=== PATIENT | female | born 1990 | race Caucasian/White ===

== ENCOUNTER 2017-01-25 00:41 | Inpatient (IN) | payer OTHER ==
--- NOTE | ~2017-01-25 | CT16 ---
[facility] A Service of [facility] RADIOLOGY TEXT RESULTS PATIENT: BONI GONZALEZ [facility] 572-01 : [birth year] UNIT #: [id number] AGE: [address]: Peyton Molina MD SEX: F ORDER DR: [id number] [facility] [address] [place], [place] [address] [id number] I MR#: [id number] Acc #: [id number] NAME: BONI GONZALEZ : 1990 SEX: F STUDY DATE/TIME: 01/25/2017 4:40 [facility]IT[facility] ROOM: [facility] STUDY DESCRIPTION: CT Angio Chest for PE Attending Physician: Peyton Molina M.D. Ordering Physician: Polina Proctor A.P.R.N. Primary Care Physician: No Primary Care Physician MEDICAL IMAGING REPORT This report is preliminary unless electronic signature is present EXAM CTA chest. INDICATIONS Shortness of air and chest pain. Pain with inspiration. Recent surgery. TECHNIQUE CT angiography of the chest utilizing 100 mL Isovue-370 IV contrast. Coronal 3-D MIP reconstructions and standard sagittal reconstructions were obtained. This CT exam was performed with one or more of the following radiation dose reduction techniques: automatic exposure control, adjustment of mA and/or kV according to patient size, and iterative reconstruction. COMPARISON Chest radiograph, 01/25/2017. FINDINGS No pulmonary embolus. No thoracic aortic aneurysm or dissection. There is no pericardial effusion. There is a large loculated effusion on the left. This measures up to 12 cm in superior/inferior dimension. This occupies approximately one-half of the left hemithorax. There is some mild pleural enhancement suggesting this may be empyema. Several additional elliptoid pleural-based fluid collections are noted. These have thicker chaudhry measuring up to 4 x 2.2 cm. There is some osseous erosion associated with the anterior left first rib. There is irregularity of the posterior wall of the cortex. This is felt to represent to represent some chest wall invasion. There is asymmetry of the intercostal muscles indicating extension through the chest wall. This particular area measures 4.4 x 4 cm. Given then patient's age, I assume this is infectious, however, this could potentially be malignant. [facility]. [facility] A Service of [facility] RADIOLOGY TEXT RESULTS PATIENT: BONI GONZALEZ [facility] 572-01 : [birth year] UNIT #: [id number] AGE: [address]: Peyton Molina MD SEX: F ORDER DR: There is mild centrilobular emphysema. Linear atelectasis or scarring is noted in the right lower lobe. IMPRESSION 1. Negative for pulmonary embolus. 2. Very large loculated pleural effusion in the left hemithorax occupies approximately one-half the volume of the left hemithorax. This probably represents an empyema. 3. Additional loculated fluid collections in the anterior left chest. One of these collections extends through the chest wall eroding portion of the left first rib. Given the patient's age, this is most likely infection, however, pleural metastatic disease and/or mass could have a similar appearance. 4. Emphysema. Dictated by... Dakotah Galarza M.D. THIS IS AN ELECTRONICALLY VERIFIED REPORT Dakotah Galarza M.D. at 01/26/2017 1:02 AM LEEANNA/deborah TD: 01/25/2017 17:55 JOB #: [id number] MEDICAL IMAGING REPORT Page 1 of 1 COPY
--- NOTE | ~2017-01-25 | CR72 ---
[facility] A Service of [facility] RADIOLOGY TEXT RESULTS PATIENT: BONI GONZALEZ LOCATION: [facility] : [birth year] UNIT #: [id number] AGE: [address]: Peyton Molina MD SEX: F ORDER DR: [id number] [facility] [address] [place], [place] [address] [id number] I MR#: [id number] Acc #: [id number] NAME: BONI GONZALEZ : 1990 SEX: F STUDY DATE/TIME: 01/29/2017 21:09 UNIT: [facility] ROOM: [facility] STUDY DESCRIPTION: CR Chest Single View Portable Attending Physician: Peyton Molina M.D. Ordering Physician: Lauro Faith M.D. Primary Care Physician: Primary Care Physician No MEDICAL IMAGING REPORT This report is preliminary unless electronic signature is present EXAM Frontal chest, 01/29/2017 INDICATIONS 27-year-old female with history of chest tube placement today. TECHNIQUE Frontal chest compared with 1133 hours. FINDINGS Right-sided central line unchanged. There are 2 left-sided chest tubes. Cardiac silhouette borderline in size and stable. Vascularity unremarkable. There is a small left-sided effusion. Opacities in the left lung are not significantly changed from the prior study. No distinct pneumothorax. IMPRESSION 1. Previously demonstrated left basilar pneumothorax no longer clearly identified. Small left effusion now present. No pneumothorax on the left. Two left-sided chest tubes are present. No other significant interval change from 1133 hours. Dictated by... Marco Anderson M.D. THIS IS AN ELECTRONICALLY VERIFIED REPORT Marco Anderson M.D. at 01/30/2017 2:36 PM JEN/julio TD: 01/29/2017 23:43 JOB #: [id number] [facility] A Service of [facility] RADIOLOGY TEXT RESULTS PATIENT: BONI GONZALEZ LOCATION: [facility] : [birth year] UNIT #: [id number] AGE: [address]: Peyton Molina MD SEX: F ORDER DR: MEDICAL IMAGING REPORT Page 1 of 1 COPY
--- NOTE | ~2017-01-25 | DS ---
Unit #: [id number] #: [id number] Patient: BONI GONZALEZ [id number] [address] [address] [id number] I MR#: [id number] NAME: BONI GONZALEZ ROOM: 550 Age: 27 Sex: F Admission Date: 01/25/2017 : 1990 Discharge Date: 02/01/2017 Attending Physician: Peyton Molina M.D. Primary Care Physician: No Primary Care Physician DISCHARGE SUMMARY NOTE: Please note the patient left AMA. She walked off the floor and did not return. HISTORY OF PRESENT ILLNESS/HOSPITAL COURSE The patient is a 27-year-old female originally admitted secondary to back/rib pain, as well as empyema, which was noted on initial CT chest while evaluated in the emergency room. Consultation was placed to Dr. Morrell, as well as Dr. Faith, through her hospital course. Ultimately the patient underwent chest tube placement and, later on, VATS procedure with associated decortication by Dr. Faith. Final empyema cultures did come back positive for MSSA. Dr. Ocampo of infectious disease service continued to follow the patient through her hospital course. Her blood cultures did not show any acute bacterial growth through the course that she was here. She did undergo two-D echocardiogram, which did not show any acute vegetations. Her urine tox on admission was positive for benzodiazepines, as well as opiates. On 02/01/2017 the patient had her chest tube removed, and initial plans were made for the patient to be placed on Keflex until February 21, 2017. However, the patient left the floor as soon as her chest tube was removed. She was overhead paged several times and ultimately was noted that the patient decided to leave AMA. Discharge medications are unknown. Overall long-term prognosis of this patient is very poor. Life expectancy is likely less than 6 months due to lack of insight into disease process, as well as ongoing IV drug abuse. FINAL DISCHARGE DIAGNOSES 1. Empyema, left chest wall, positive methicillin-sensitive Staphylococcus aureus, status post chest tube placement and video-assisted thoracoscopy procedure with associated decortication. 2. Ongoing intravenous drug abuse with poor or little insight into disease process. DISCHARGE MEDICATIONS Unknown. LONG-TERM PROGNOSIS Unit #: [id number] #: [id number] Patient: BONI GONZALEZ. Dictated by... Celsa Luz/raciel TD: 02/04/2017 10:13 JOB #: [id number] DISCHARGE SUMMARY Page 1 of 1 X Peyton Molina MD X DISCHARGE SUMMARY
--- NOTE | ~2017-01-25 | OR ---
Unit #: [id number] #: [id number] Patient: BONI GONZALEZ [id number] [address] [address] [id number] I MR#: [id number] NAME: BONI GONZALEZ ROOM: [facility] Date of Procedure: 01/29/2017 Admission Date: 01/25/2017 Surgeon: Lauro Faith M.D. : 1990 Attending Physician: Peyton Molina M.D. Primary Care Physician: Primary Care Physician No OPERATIVE REPORT PREOPERATIVE DIAGNOSIS Left empyema with loculated pleural collection in spite of a left chest tube in place. POSTOPERATIVE DIAGNOSIS Left empyema with loculated pleural collection in spite of a left chest tube in place. PROCEDURE PERFORMED Left video-assisted thoracoscopy with decortication. ANESTHESIA General. ESTIMATED BLOOD LOSS About 500 mL. DRAINS Two #28 chest tubes. COMPLICATIONS None. DESCRIPTION OF PROCEDURE The patient was taken to the operating room and placed on the operating room table in a supine position. After appropriate monitoring lines had been placed, general endotracheal anesthesia was then induced using a double-lumen endotracheal tube. Adequate positioning of this tube was ensured using the pediatric bronchoscope. A Woodward catheter was inserted. The patient was placed on the operating room table in a right lateral decubitus position. A rolled sheet was placed beneath the right axillary area. The patient was secured in place on the operating room table using a quesada bag as well as tape across the left hip. The left arm was supported anteriorly on an arm support. The old chest tube was removed. The left chest was prepped with ChloraPrep and draped in a sterile fashion. A small 1 to 1.5 cm skin incision was made in the mid axillary line at about the seventh intercostal space. The incision was carried down through the subcutaneous tissue and muscle and fascial layers using the Bovie. With the lung being deflated on the left, the pleural space was entered at this level using a Rubi clamp and a gloved finger then inserted. A trocar introducer was inserted and the thoracoscope then passed per this trocar introducer. There was a large amount of grayish Unit #: [id number] #: [id number] Patient: BONI GONZALEZ exudative and fibrinous material covering the diaphragm and chest wall in the lower chest as well as the left lower lobe and extending up on the left upper lobe. The left upper lobe was somewhat adherent to the chest wall and 2 counter incisions were made in the chest for passage of instruments. One of these was placed posteriorly in about the sixth intercostal space and the other placed anteriorly in about the fifth intercostal space. A ringed lung clamp was used to bluntly take down the left upper lobe. This dissection was carried out more at the apex and the anterior portion of the left upper lobe, there was a severe amount of adhesions present with necrotic material present. There was also a moderate amount of the grayish exudative material present along the anterior portion of the hilum. As much of the grayish fibrinous pleural collection was removed as was possible with a large cupped forceps. Also some of the material was suctioned free from the chest. A Paulino elevator was used to scrape some of this material from the diaphragm as well as the chest wall and then subsequently removed it using the large cupped forceps. Also the diaphragmatic surface of the left lower lobe was scraped with the Paulino elevator to remove exudative grayish material. It was also used on the lateral portion of the left lower lobe. The left upper lobe seemed to be fairly free of the fibrinous collection on the lung except at the anterior portion of the left upper lobe. At this portion, the tissue seemed to be slightly more necrotic. The remaining material in the pleural space was then removed using the large cupped forceps and the chest then irrigated on 2 to 3 occasions with warm normal saline solution to remove any small amount of particles. After adequate hemostasis had been ensured, two #28 chest tubes were inserted with one being placed high in the anterior in the chest and the other being placed in the posterior gutter. These were brought out through the lower incisions that had already been made in the chest. They were sutured in place to the skin using 2-0 silk suture. They were individually connected to a Pleur-evac. The small posterior incision was closed using 2-0 Vicryl for the muscle and fascial layer, 3-0 Vicryl for the subcutaneous tissue, and running 4-0 Vicryl subcuticular stitch for the skin. This incision was sterilely dressed. A cut 4x4 was placed around the chest tubes, and they were secured in place with tape. Also, a small piece of Vaseline gauze was placed over the old chest tube site and this was covered with 4x4s and held in place with tape. Estimated blood loss in the procedure was about 500 mL. Sponge and needle counts in the operation were correct. The patient tolerated the procedure well and left the operating room in satisfactory condition. Dictated by... Celsa Kelley/ann TD: 01/30/2017 00:37 JOB #: [id number] Unit #: [id number] #: [id number] Patient: BONI GONZALEZ OPERATIVE REPORT Page 1 of 1 X Lauro Faith MD X PROCEDURE OPERATIVE NOTE
--- NOTE | ~2017-01-25 | CO ---
Unit #: [id number] #: [id number] Patient: BONI GONZALEZ [id number] [address] [address] [id number] I MR#: [id number] NAME: BONI GONZALEZ ROOM: 572 Age: 26 Sex: F Admission Date: 01/25/2017 : 1990 Attending Physician: Peyton Molina M.D. Primary Care Physician: No Primary Care Physician Consultation Date: 01/26/2017 CONSULTATION REPORT REASON FOR CONSULTATION Antibiotic management in a patient with empyema. HISTORY OF PRESENT ILLNESS This is a 26-year-old female with a history of IV drug abuse, last ingested 3 to 4 weeks ago. The patient reports that was going to come to the hospital secondary to chest pain and shortness of breath; however, she was incarcerated for the last three weeks. The patient continued to have shortness of air and chest pain while she was in prison and when she was released she came directly to the hospital. While here she had a CT scan done that showed a loculated effusion concerning for empyema and she had a chest tube placed. Fluid was consistent with empyema and cultures are currently growing staph aureus. The patient also had a urinalysis done that was concerning for urinary tract infection. The patient reports that she frequently gets urinary tract infections. However, she has no specific symptoms at this time. The patient has been placed on tobramycin, vancomycin and Zosyn and infectious disease was asked to evaluate. The patient does have fever and leukocytosis as well during admission. PAST MEDICAL HISTORY IV drug abuse. Otherwise negative. PAST SURGICAL HISTORY Negative. SOCIAL HISTORY IV drug abuse. Tobacco abuse. Social alcohol. ALLERGIES Caffeine and Tylenol. CURRENT MEDICATIONS 1. Vancomycin. 2. Tobramycin. 3. Zosyn. For further medications please refer to the patient's MAR. REVIEW OF SYSTEMS The patient reports that her back pain has resolved. She does have some chest pain at the insertion site of her chest tube. She reports fever and occasional chills. No nausea, vomiting, diarrhea. No significant urinary tract infection signs or symptoms. The patient reports no abscess or inflammation at the site of injection. Unit #: [id number] #: [id number] Patient: BONI GONZALEZ PHYSICAL EXAMINATION GENERAL: This is a no apparent distress female sitting on the side of the bed comfortably. VITALS: Temperature 100.4, t-max 102.4, pulse 90, blood pressure 141/77, respiratory rate 17. HEENT: Pupils are equal. NECK: Supple. LUNGS: Clear to auscultation in the upper lobes. However, diminished in the lower lobes. Chest tube is in place in the left chest. HEART: S1 and S2 with regular rate. ABDOMEN: Positive bowel sounds. Soft and nontender. EXTREMITIES: No clubbing, cyanosis or edema. DIAGNOSTIC STUDIES IMAGING: CT scan of the chest, please see full report for complete details. It shows no evidence of PE. Large loculated pleural effusion and emphysema. LABORATORY: BUN less than 5, creatinine 0.7, sodium 136, potassium 2.8, chloride 98, CO2 30, bilirubin 0.7, AST 56, ALT 108, alkaline phosphatase 138, lactic acid 1.9. White blood cell count 17.6, which is improved from 21,000. Hemoglobin 10.3, hematocrit 31.5, platelets 644. Pleural fluid shows 219,843 WBCs with 97% neutrophils. Glucose was not done. Protein 5.9, LDH 14,301. Urinalysis shows WBCs 50-100, negative nitrites, positive RBCs. Blood cultures are currently pending. Urine culture shows gram negative rods, greater than 100,000 colonies, and pleural fluid shows staph aureus. ID is pending. ASSESSMENT This is a 26-year-old female who abuses IV drugs and recently incarcerated. The patient now presents with shortness of breath and chest pain, found to have large loculated effusion on her left lung. The patient is status post chest tube, consistent with empyema, growing staph aureus and concern is for MRSA. At this time, as the patient has use of recreational activities including IV drugs, there is also a concern for bacteremia and endocarditis. At this time would recommend to continue vancomycin and Zosyn, but hold tobramycin as the patient appears nontoxic. Will check a CBC and CMP in the morning. Will check HIV test as the patient is high risk. Will check a two-dimensional echocardiogram to evaluate for any vegetations and have the nursing staff call with any positive blood cultures. Will follow along the final ID of the staph aureus that is in the pleural fluid. Will continue to treat as questionable gram negative urinary tract infection. However, the patient does not have significant symptoms. Thank you for allowing us to participate in the care of this patient. Further recommendations to follow pending the patient's clinical course. Dictated by... Kinga Cedeño A.P.R.N. for Kiran Nichole M.D. SLS/gz TD: 01/26/2017 11:25 Unit #: [id number] #: [id number] Patient: BONI GONZALEZ JOB #: [id number] CONSULTATION REPORT Page 1 of 1 X X CONSULTATION REPORT
--- NOTE | ~2017-01-25 | CR72 ---
[facility] A Service of [facility] RADIOLOGY TEXT RESULTS PATIENT: BONI GONZALEZ LOCATION: [facility] 572-01 : [birth year] UNIT #: [id number] AGE: [address]: Peyton Molina MD SEX: F ORDER DR: [id number] [facility] [address] [place], [place] [address] [id number] I MR#: [id number] Acc #: [id number] NAME: BONI GONZALEZ : 1990 SEX: F STUDY DATE/TIME: 01/27/2017 5:20 UNIT: [facility] ROOM: [facility] STUDY DESCRIPTION: CR Chest Single View Portable Attending Physician: Peyton Molina M.D. Ordering Physician: Peyton Molina M.D. Primary Care Physician: No Primary Care Physician MEDICAL IMAGING REPORT This report is preliminary unless electronic signature is present EXAM Portable chest, 01/27. INDICATION Empyema. Shortness of air. Chest pain. History of drug use. FINDINGS AP portable chest compared to 01/26/2017. Right-side central venous catheter in the SVC. Heart size stable. Left chest tube in place. Loculated pleural based density on the left is stable. Consolidation in the left mid to lower lung is also stable. Right lung is clear except for some atelectasis in the medial base. No pneumothorax. Dictated by... Leandro Martin Jr., M.D. THIS IS AN ELECTRONICALLY VERIFIED REPORT Leandro Martin Jr., M.D. at 01/27/2017 3:48 PM AMADA/cash TD: 01/27/2017 14:05 JOB #: [id number] MEDICAL IMAGING REPORT Page 1 of 1 COPY
--- NOTE | ~2017-01-25 | EKG ---
PATIENT: BONI GONZALEZ UNIT #: [id number] Ventricular Rate: 127 BPM Atrial Rate: 127 BPM P-R Interval: 154 ms QRS Duration: 88 ms Q-T Interval: 310 ms QTC Calculation(Bezet): 450 ms P [place]: 27 degrees Calculated R [place]: 42 degrees Calculated T [place]: 7 degrees Diagnosis Line: Sinus tachycardia with occasional Premature Diagnosis Line: ventricular complexes Diagnosis Line: Septal infarct , age undetermined Diagnosis Line: T wave abnormality, consider inferior ischemia Diagnosis Line: Abnormal ECG Diagnosis Line: No previous ECGs available Diagnosis Line: Confirmed by LETY EUCEDA MD ([id number]) on Diagnosis Line: 01/27/2017 11:04:55 AM INTERPRETING MD: OK EISENBERG
--- NOTE | ~2017-01-25 | CR72 ---
[facility] A Service of [facility] RADIOLOGY TEXT RESULTS PATIENT: BONI GONZALEZ LOCATION: [facility] : [birth year] UNIT #: [id number] AGE: [address]: Peyton Molina MD SEX: F ORDER DR: [id number] [facility] [address] [place], [place] [address] [id number] I MR#: [id number] Acc #: [id number] NAME: BONI GONZALEZ : 1990 SEX: F STUDY DATE/TIME: 02/01/2017 5:47 UNIT: C5B ROOM: [facility] STUDY DESCRIPTION: CR Chest Single View Portable Attending Physician: Peyton Molina M.D. Ordering Physician: Peyton Molina M.D. Primary Care Physician: No Primary Care Physician MEDICAL IMAGING REPORT This report is preliminary unless electronic signature is present EXAM Portable chest HISTORY Chest pain, short of air for 8 days COMMENT Single frontal and portable view of the chest 5:47 at 02/01/17 reviewed. FINDINGS There is a left chest tube present. The second left chest tube has been removed since earlier film. There is a small to moderate left pleural effusion similar in size and there is airspace disease left mid to lower lung with some improvement. There is no pneumothorax. There is probably a mild cardiac silhouette enlargement partially obscured by the left lung pathology. The right lung is clear. The right IJ catheter is not changed. IMPRESSION 1. Interval removal of one of left chest tubes. No pneumothorax. 2. There is left pleural fluid and left lower lung airspace disease with some improvement overall in the airspace disease since prior. Dictated by... Vania Sal M.D. THIS IS AN ELECTRONICALLY VERIFIED REPORT Vania Sal M.D. at 02/02/2017 7:18 AM BROOKE/yocasta [facility] A Service of [facility] RADIOLOGY TEXT RESULTS PATIENT: BONI GONZALEZ LOCATION: [facility] : [birth year] UNIT #: [id number] AGE: [address]: Peyton Molina MD SEX: F ORDER DR: TD: 02/01/2017 17:24 JOB #: [id number] MEDICAL IMAGING REPORT Page 1 of 1 COPY
--- NOTE | ~2017-01-25 | CR71 ---
[facility] A Service of [facility] RADIOLOGY TEXT RESULTS PATIENT: BONI GONZALEZ LOCATION: [facility]- : [birth year] UNIT #: [id number] AGE: [address]: Peyton Molina MD SEX: F ORDER DR: [id number] [facility]. [place], [place] [address] [id number] I MR#: [id number] Acc #: [id number] NAME: BONI GONZALEZ : 1990 SEX: F STUDY DATE/TIME: UNIT: [facility] ROOM: [facility] STUDY DESCRIPTION: CR Chest Single View Attending Physician: Peyton Molina M.D. Ordering Physician: Lauro Faith M.D. Primary Care Physician: Primary Care Physician No MEDICAL IMAGING REPORT This report is preliminary unless electronic signature is present EXAM Chest portable 01/29/2017 1133 hours HISTORY History of shortness of air, chest pain and empyema on the left. Chest tube adjustment today. COMPARISON 01/27/2017 FINDINGS Single portable view demonstrates a right central venous catheter with tip in SVC. There are now 2 chest tubes present obliquely oriented with tips near the left apex. The previous tube with tip at the medial lung base not seen. There is interval evacuation of the loculated pleural fluid from the lower left chest with a small lateral basal pneumothorax present which could be on an ex vacuo basis. IMPRESSION There are now 2 left chest tubes present with tips obliquely oriented near the left apex. The left pleural fluid has been evacuated. There is a lateral basal pneumothorax only which could be due to ex vacuo factor with atelectasis at the left base. No apical pneumothorax is seen. Dictated by... Loretta Bar M.D. THIS IS AN ELECTRONICALLY VERIFIED REPORT Loretta Bar M.D. at 01/29/2017 4:57 PM SMM/ana TD: 01/29/2017 16:08 JOB #: [id number] [facility] A Service of [facility] RADIOLOGY TEXT RESULTS PATIENT: BONI GONZALEZ LOCATION: [facility] 572-01 : [birth year] UNIT #: [id number] AGE: [address]: Peyton Molina MD SEX: F ORDER DR: MEDICAL IMAGING REPORT Page 1 of 1 COPY
--- NOTE | ~2017-01-25 | CR72 ---
[facility] A Service of [facility] RADIOLOGY TEXT RESULTS PATIENT: BONI GONZALEZ LOCATION: [facility] 550-01 : [birth year] UNIT #: [id number] AGE: [address]: Peyton Molina MD SEX: F ORDER DR: [id number] [facility] [address] [place], [place] [address] [id number] I MR#: [id number] Acc #: [id number] NAME: BONI GONZALEZ : 1990 SEX: F STUDY DATE/TIME: 01/31/2017 6:05 UNIT: C5B ROOM: [facility] STUDY DESCRIPTION: CR Chest Single View Portable Attending Physician: Peyton Molina M.D. Ordering Physician: Jennifer Sherman A.P.R.N. Primary Care Physician: No Primary Care Physician MEDICAL IMAGING REPORT This report is preliminary unless electronic signature is present EXAM Portable chest, 01/31. INDICATION Empyema. Shortness of air. Chest pain. FINDINGS AP portable chest is compared with 01/30/2017. Right IJ line and 2 chest tubes on the left remain in place. Heart size stable. Right lung is clear. There is continued infiltrate at the left pww-rd-emutv lung. No pneumothorax on either side. Dictated by... Leandro Martin Jr., M.D. THIS IS AN ELECTRONICALLY VERIFIED REPORT Leandro Martin Jr., M.D. at 01/31/2017 4:09 PM AMADA/davon TD: 01/31/2017 09:33 JOB #: [id number] MEDICAL IMAGING REPORT Page 1 of 1 COPY
--- NOTE | ~2017-01-25 | CR72 ---
[facility] A Service of [facility] RADIOLOGY TEXT RESULTS PATIENT: BONI GONZALEZ LOCATION: [facility] : [birth year] UNIT #: [id number] AGE: [address]: Peyton Molina MD SEX: F ORDER DR: [id number] [place], [place] [address] [id number] I MR#: [id number] Acc #: [id number] NAME: BONI GONZALEZ : 1990 SEX: F STUDY DATE/TIME: 02/01/2017 12:42 UNIT: C5B ROOM: [facility] STUDY DESCRIPTION: CR Chest Single View Portable Attending Physician: Peyton Molina M.D. Ordering Physician: Peyton Molina M.D. Primary Care Physician: No Primary Care Physician MEDICAL IMAGING REPORT This report is preliminary unless electronic signature is present EXAM Chest x-ray, 02/01/2017 HISTORY Chest tube removal. TECHNIQUE AP portable chest x-ray. FINDINGS Left chest tube has been removed since earlier today, there is no visible pneumothorax. Remainder of exam is unchanged. Stable small left pleural effusion with infiltrate and/or atelectasis in the left lower lung. Right lung clear. Right IJ central line remains in good position. IMPRESSION No pneumothorax following chest tube removal. Dictated by... Nicola Andino M.D. THIS IS AN ELECTRONICALLY VERIFIED REPORT Nicola Andino M.D. at 02/02/2017 12:51 PM LONA/yocasta TD: 02/01/2017 22:43 JOB #: [id number] [facility] A Service of [facility] RADIOLOGY TEXT RESULTS PATIENT: BONI GONZALEZ LOCATION: [facility] : [birth year] UNIT #: [id number] AGE: [address]: Peyton Molina MD SEX: F ORDER DR: MEDICAL IMAGING REPORT Page 1 of 1 COPY
--- NOTE | ~2017-01-25 | CR72 ---
[facility] A Service of [facility] RADIOLOGY TEXT RESULTS PATIENT: BONI GONZALEZ LOCATION: [facility] 572-01 : [birth year] UNIT #: [id number] AGE: [address]: Peyton Molina MD SEX: F ORDER DR: [id number] [facility] [address] [place], [place] [address] [id number] I MR#: [id number] Acc #: [id number] NAME: BONI GONZALEZ : 1990 SEX: F STUDY DATE/TIME: 01/26/2017 13:49 UNIT: [facility] ROOM: [facility] STUDY DESCRIPTION: CR Chest Single View Portable Attending Physician: Peyton Molina M.D. Ordering Physician: Destin Morrell M.D. Primary Care Physician: Primary Care Physician No MEDICAL IMAGING REPORT This report is preliminary unless electronic signature is present EXAM Portable chest, 01/26/2017 HISTORY Chest pain left side and left rib pain radiating to the back beginning yesterday. No known injury. FINDINGS The cardiac and mediastinal structures are stable compared with 01/25/2017. Right internal jugular central line is unchanged. Large left pleural effusion with infiltrate or atelectasis left lower lobe. Left pleural tube is unchanged in position and there is no pneumothorax. Possible additional loculated pleural fluid lateral left upper lobe unchanged. IMPRESSION No change compared with 01/25/2017. Dictated by... Ney Stephens M.D. THIS IS AN ELECTRONICALLY VERIFIED REPORT Ney Stephens M.D. at 01/27/2017 2:09 PM JENNY/fredo TD: 01/27/2017 00:51 JOB #: [id number] MEDICAL IMAGING REPORT Page 1 of 1 COPY
--- NOTE | ~2017-01-25 | OR ---
Unit #: [id number] #: [id number] Patient: BONI GONZALEZ [id number] [address] [id number] I MR#: [id number] NAME: BONI GONZALEZ ROOM: 572 Date of Procedure: Admission Date: 01/25/2017 Surgeon: Destin Morrell M.D. : 1990 Attending Physician: Peyton Molina M.D. Primary Care Physician: No Primary Care Physician PROCEDURE OPERATIVE NOTE PROCEDURE PERFORMED Left sided chest tube insertion. INDICATION Left sided pleural effusion. PREPROCEDURE DIAGNOSIS Pleural effusion. POST PROCEDURE DIAGNOSIS Empyema. DETAILS OF THE PROCEDURE After placing patient in the proper position, the patient was given 100 mg of ketamine and 200 mcg of versed under all aseptic measures. The skin was prepped with ChloraPrep and a 3 cm incision made between left fifth and sixth intercostal space in front of the mid (1) line. With blunt dissection, left side pleural cavity was entered and pus came out of the pleural cavity in a significant amount. With the help of a trocar, a size 28 Azeri tube passed into the pleural cavity. Chest tube was sutured with silk in place. Sterile dressing applied. The patient tolerated the procedure very well. It was connected to wall suction. No complications happened. Dictated by... Celsa Eldridge/breonna TD: 01/27/2017 06:25 JOB #: [id number] Unit #: [id number] #: [id number] Patient: BONI GONZALEZ PROCEDURE OPERATIVE NOTE Page 1 of 1 X Destin Morrell MD X PROCEDURE OPERATIVE NOTE
--- NOTE | ~2017-01-25 | CR72 ---
[facility] A Service of [facility] RADIOLOGY TEXT RESULTS PATIENT: BONI GONZALEZ LOCATION: [place] [address] : [birth year] UNIT #: [id number] AGE: [address]: Peyton Molina MD SEX: F ORDER DR: [id number] [facility] [address] [place], [place] [address] [id number] I MR#: [id number] Acc #: [id number] NAME: BONI GONZALEZ : 1990 SEX: F STUDY DATE/TIME: 01/30/2017 5:36 UNIT: [facility] ROOM: [facility] STUDY DESCRIPTION: CR Chest Single View Portable Attending Physician: Peyton Molina M.D. Ordering Physician: Peyton Molina M.D. Primary Care Physician: Primary Care Physician No MEDICAL IMAGING REPORT This report is preliminary unless electronic signature is present EXAM Single view chest INDICATIONS Chest tube placement. Shortness of air. Chest pain. FINDINGS Single portable AP view of the chest compared to 01/29/2017. Left chest tubes remain in place. There is a right IJ central line. Heart and mediastinal contours are unchanged. A left basilar airspace opacity/effusion is unchanged. No pneumothorax. IMPRESSION No interval change. Dictated by... Dakotah Galarza M.D. THIS IS AN ELECTRONICALLY VERIFIED REPORT Dakotah Galarza M.D. at 01/31/2017 12:49 AM LEEANNA/jolene TD: 01/30/2017 06:26 JOB #: [id number] MEDICAL IMAGING REPORT Page 1 of 1 COPY
--- NOTE | ~2017-01-25 | CR72 ---
[facility] A Service of [facility] RADIOLOGY TEXT RESULTS PATIENT: BONI GONZALEZ LOCATION: [facility] 572-01 : [birth year] UNIT #: [id number] AGE: [address]: Peyton Molina MD SEX: F ORDER DR: [id number] [facility] [address] [place], [place] [address] [id number] I MR#: [id number] Acc #: [id number] NAME: BONI GONZALEZ : 1990 SEX: F STUDY DATE/TIME: 01/25/2017 2:13 UNIT: [facility] ROOM: [facility] STUDY DESCRIPTION: CR Chest Single View Portable Attending Physician: Peyton Molina M.D. Ordering Physician: Polina Proctor A.P.R.N. Primary Care Physician: No Primary Care Physician MEDICAL IMAGING REPORT This report is preliminary unless electronic signature is present EXAM Single view chest. INDICATIONS Left rib and back pain for 2 weeks. Shortness of air. FINDINGS Single portable AP view of the chest compared to 09/13/2011. The heart is enlarged. There is a large bilobed nodule/loculated effusion in the left superior hemithorax. There is a large left effusion and some left lower lobe airspace opacity. Right lung is clear. IMPRESSION 1. Cardiomegaly. 2. Development of a retrocardiac left lower lobe airspace opacity and/or large effusion. 3. Bilobed rounded density in the left lung apex. This could represent some loculated fluid or could represent pulmonary nodules/consolidation. Dictated by... Dakotah Galarza M.D. THIS IS AN ELECTRONICALLY VERIFIED REPORT Dakotah Galarza M.D. at 01/26/2017 12:47 AM LEEANNA/deborah TD: 01/25/2017 16:20 JOB #: [id number] MEDICAL IMAGING REPORT Page 1 of 1 COPY
--- NOTE | ~2017-01-25 | HP ---
Unit #: [id number] #: [id number] Patient: BONI GONZALEZ [id number] [address] [address] [id number] I MR#: [id number] NAME: BONI GONZALEZ ROOM: 51099 Age: 26 Sex: F Admission Date: 01/25/2017 : 1990 Attending Physician: Peyton Molina M.D. Primary Care Physician: No Primary Care Physician HISTORY AND PHYSICAL REASON FOR ADMISSION Back/rib pain, empyema. HISTORY OF PRESENT ILLNESS The patient is a 26-year-old female with a relatively unremarkable past medical history, who uses IV drugs on a fairly frequent basis. She states she has not used in the past several days but she began developing chest pain/rib pain, subsequently presented to the ER for further evaluation. While evaluated in the emergency room, although official reports are not available to me, initial CT chest did reveal findings consistent with a cardiomegaly as well as left pleural effusion. Questionable pleural pulmonary nodule and/or consolidation were noted. This subsequently prompted a CT chest PE protocol which did not reveal any PE but there was a large loculated pleural effusion on the left side occupying the left chest. Left hemithorax was also noted. Again, this report is unofficial. Patient has already been seen and evaluated by Dr. Morrell. Patient already has a chest tube which has been placed as well as a central line. The patient's white count was also noted to be 21.3 and thus initial admission diagnoses of sepsis, chest pain, pneumonia/empyema were made. Initial urinalysis was also positive. Urine tox screen was positive for benzodiazepines. CMP shows a potassium of 2.9, otherwise relatively unremarkable with the exception of hepatic profile which was an AST/ALT of 56 and 108. Initial lactic acid level was 1.9. PAST MEDICAL HISTORY Ongoing IV drug abuse with poor insight into disease process. PAST SURGICAL HISTORY None. HOME MEDICATIONS None. ALLERGIES Caffeine, Tylenol. REVIEW OF SYSTEMS Please see HPI. Twelve points otherwise negative except for those positive noted in the HPI. Unit #: [id number] #: [id number] Patient: BONI GONZALEZ FAMILY HISTORY Reviewed and noncontributory/nonpertinent. SOCIAL HISTORY IV drug abuse positive, tobacco abuse positive, social alcohol use noted. PHYSICAL EXAMINATION VITAL SIGNS: Temperature 98.3, pulse 136 on admission, respiratory rate 14, blood pressure 137/85. GENERAL APPEARANCE: The patient is a very pleasant 26-year-old female who is complaining constantly of left-sided chest pain and/or discomfort. HEAD EXAM: Normocephalic and atraumatic. EAR EXAM: Tympanic membranes do not reveal any erythema or injection. NECK EXAM: Supple. CVS: S1, S2, without murmur. RESPIRATORY: Diminished and poor exchange is noted bilaterally. GI/ABDOMEN: Nontender and nondistended. LOWER EXTREMITIES: Have no evidence of any lower extremity edema. No calf tenderness. ER COURSE Patient received morphine. Blood cultures were drawn. Zosyn, vancomycin and tobramycin were initiated. INITIAL ADMISSION DIAGNOSES 1. Left plural effusion/empyema, status post chest tube placement. 2. Pneumonia/consolidation on lungs. 3. Ongoing IV drug abuse. 4. Sepsis criteria met on admission including tachycardia plus source of infection. 5. Poor insight into the disease process. PLAN 1. Admission telemetry floor. 2. Pulmonary consult has already been done. 3. Chest tube placement. 4. Consultation was placed to ID services for antibiotic management. Tobramycin, vancomycin and Zosyn were initiated in the ER. Hold off on further tobramycin for now. Will await final blood cultures. Extensive counseling will be done. 5. DR. Tinajero will be placed on consult once patine is more medically stable as well. 6. Plans have been reviewed with patient as well as her Family members who are present at bedside. 7. There is a strong suspicion patient may ultimately leave [place] as she has very little insight into her disease process. If she chooses to do so, unfortunately her long-term prognosis is very poor. Dictated by Celsa Luz/krishna TD: 01/25/2017 14:02 Unit #: [id number] #: [id number] Patient: BONI GONZALEZ JOB #: [id number] HISTORY AND PHYSICAL Page 1 of 1 X Peyton Molina MD X HISTORY AND PHYSICAL
--- NOTE | ~2017-01-25 | CR72 ---
[facility] A Service of [facility] RADIOLOGY TEXT RESULTS PATIENT: BONI GONZALEZ LOCATION: [facility] 572-01 : [birth year] UNIT #: [id number] AGE: [address]: Peyton Molina MD SEX: F ORDER DR: [id number] [facility] [place], [place] [address] [id number] I MR#: [id number] Acc #: [id number] NAME: BONI GONZALEZ : 1990 SEX: F STUDY DATE/TIME: 01/25/2017 11:52 UNIT: [facility] ROOM: 2 STUDY DESCRIPTION: CR Chest Single View Portable Attending Physician: Peyton Molina M.D. Ordering Physician: Destin Morrell M.D. Primary Care Physician: No Primary Care Physician MEDICAL IMAGING REPORT This report is preliminary unless electronic signature is present EXAM Frontal chest, 01/25/2017. INDICATIONS 26-year-old female with a history of chest tube placement. Pain in the back and chest. Symptoms began today. TECHNIQUE Frontal chest was performed. COMPARISON Correlation is made with chest CT 01/25/2017. FINDINGS There is a right-sided central line terminating at the distal SVC level. The heart is borderline in size. Vascularity within normal limits. The right lung appears clear. There is a left-sided chest tube and there is a large left-sided effusion that based upon the prior CT appears loculated with associated atelectasis or less likely pneumonia in the mid and lower lung zone on the left. What appear to represent pleural-based densities in the upper lung zone on the left appeared to relate to additional areas of loculated pleural fluid better demonstrated on the prior CT. There is no pneumothorax. IMPRESSION 1. There is a large left-sided effusion which is loculated on CT. Additional areas of loculated pleural fluid tracking towards the left lung apex. There is no pneumothorax. There is atelectasis or pneumonia in the mid and lower lung zone on the left. 2. The right lung is clear. Dictated by... [facility] A Service of [facility] RADIOLOGY TEXT RESULTS PATIENT: BONI GONZALEZ LOCATION: [facility] 572-01 : [birth year] UNIT #: [id number] AGE: [address]: Peyton Molina MD SEX: F ORDER DR: Marco Anderson M.D. THIS IS AN ELECTRONICALLY VERIFIED REPORT Marco Anderson M.D. at 01/26/2017 8:46 AM William TD: 01/25/2017 22:18 JOB #: [id number] MEDICAL IMAGING REPORT Page 1 of 1 COPY
--- NOTE | ~2017-01-25 | CO ---
Unit #: [id number] #: [id number] Patient: BONI GONZALEZ [id number] [address] [address] [id number] I MR#: [id number] NAME: BONI GONZALEZ ROOM: 572 Age: 26 Sex: F Admission Date: 01/25/2017 : 1990 Attending Physician: Peyton Molina M.D. Primary Care Physician: No Primary Care Physician Consultation Date: 01/25/2017 CONSULTATION REPORT REASON FOR CONSULTATION Pleural effusion. 26-year-old female with extensive history of IV drug use, presents with a complaint of cough, shortness of breath, back pain. CT chest showed left sided effusion. I am seeing her at the bedside. She denies any nausea, vomiting, diarrhea. PAST MEDICAL HISTORY IV drug abuse. SURGICAL HISTORY None. MEDICATIONS None. ALLERGIES Tylenol. SOCIAL HISTORY IV drug use. PHYSICAL EXAMINATION 0ITAL SIGNS: Temperature 98, pulse 10, respirations 12, blood pressure 130/70. NEUROLOGICAL: Awake, alert, oriented. No neuro deficit. HEENT: PERRLA. NECK: Supple. No JVD. CHEST: Bilateral air entry, bilateral mild rhonchi. GI: Nontender, soft. Bowel sounds positive. EXTREMITIES: No edema. SKIN: No rashes, no ulcers. LYMPHATIC: No lymphadenopathy. DIAGNOSTIC STUDIES Labs and imaging reviewed. ASSESSMENT AND PLAN 1. Left sided pleural effusion. 2. Pneumonia. 3. Possible empyema. 4. IV drug use. Unit #: [id number] #: [id number] Patient: BONI GONZALEZ Plan is to place a chest tube. Send pleural fluid for cytology, cell count, pH, microbiology and cultures. Place on IV antibiotics, broad spectrum. 2D echo. Patient will be closely monitored. Please see orders for detailed plan. Dictated by... Celsa Eldridge/breonna TD: 01/27/2017 06:20 JOB #: [id number] CONSULTATION REPORT Page 1 of 1 X Destin Morrell MD CONSULTATION REPORT
[~2017-01-25 00:41] MED LIST: BACTRIM DS TABL1 TA2 PO; CIPRO PO; FLEXERIL10 MG PO; KEFLEX500 M2 PO; MOBIC PO; NAPROSYN500 MG PO; PEN-VEE K PO; ULTRAM PO
[2017-01-25 02:04] LABS: URINE SOURCE CLEAN CATCH
[2017-01-25 02:21] LABS: URINE APPEARANCE CLOUDY; URINE BILIRUBIN NEG (NEG); URINE BLOOD 2+ (NEG); URINE COLOR DK YELLOW; URINE GLUCOSE NEG (NEG); URINE KETONE TRACE (NEG); URINE LEUKOCYTE ESTERASE 1+ (NEG); URINE NITRATE NEG (NEG); URINE PH 5.5 (5-8); URINE PROTEIN 1+ (NEG); URINE SPECIFIC GRAVITY 1.025 (1.003-1.035)
[2017-01-25 02:24] LABS: CULTURE INDICATED? YES; URINE BACTERIA AUWI 1+ (NEGATIVE); URINE SQUAMOUS EPITHELIAL CELL OCC /[HPF]; UWBCS1 AUWI 50-100 (0-5)
[2017-01-25 02:44] LABS: AMPHETAMINE NEG (NEG); BARBITURATES NEG (NEG); BENZODIAZEPINES POS (NEG); COCAINE NEG (NEG); MARIJUANA NEG (NEG); OPIATES NEG (NEG); TRICYCLIC ANTIDEPRESSANTS NEG (NEG); U METHADONE NEG (NEG)
[2017-01-25 02:59] LABS: BASOPHIL# 0.1 X10e3 (0-0.3); BASOPHIL% 0.4 % (0-2.5); EOSINOPHIL# 0.1 X10e3 (0-0.7); EOSINOPHIL% 0.5 % (0.0-7.0); HEMOGLOBIN 12.1 gm/dL (12.0-16.0); LYMPHOCYTE# 2.9 X10e3 (1.0-3.5); LYMPHOCYTE% 13.5 % (17.0-45.0); MEAN CELL VOLUME 85.3 FL (83-96); MEAN CORPUSCULAR HGB CONC 32.8 g/dL (30-36); MEAN PLATELET VOLUME 6.2 FL (6.5-11.5); MONOCYTE# 1.3 X10e3 (0-1.0); NEUTROPHIL% 79.6 % (40-75); PLATELET COUNT 779 X10e3 (140-420); RED BLOOD COUNT 4.34 X10e (3.90-5.30); RED CELL DISTRIBUTION WIDTH 13.6 % (11.0-15.5); WHITE BLOOD COUNT 21.3 X10e3 (4.0-10.5)
[2017-01-25 03:00] LABS: DIFF IND YES
[2017-01-25 03:03] LABS: POC - CKMB <1.0 ng/mL (0.0-7.9); POC - TROPONIN <0.05 ng/mL (<=0.05)
[2017-01-25 03:13] LABS: PARTIAL THROMBOPLASTIN TIME 28.6 SECONDS (23.5-31.3); PROTHROMBIN TIME (PATIENT) 11.1 SECONDS (10.0-11.7)
[2017-01-25 03:30] LABS: ALBUMIN SERUM 2.7 g/dL (3.5-5.0); BILIRUBIN,TOTAL 0.7 mg/dL (0.2-2.0); BUN/CREATININE RATIO 8.33; CALCIUM SERUM 8.1 mg/dL (8.4-10.2); CREATININE SERUM 0.6 mg/dL (0.6-1.4); PROTEIN TOTAL SERUM 7.5 g/dL (6.0-8.3)
[2017-01-25 03:31] LABS: URINE MUCUS PRESENT
[2017-01-25 03:40] LABS: POTASSIUM 2.9 mmol/L (3.5-5.1)
[2017-01-25 04:05] LABS: PLATELET ESTIMATE INCREASED (NORMAL)
[2017-01-25 04:06] LABS: RBC NORMAL YES
[2017-01-25 15:01] LABS: BF TOTAL NUCLEATED CELL COUNT 219843 CMM (0-100); BODY FLUID APPEARANCE TURBID; BODY FLUID RBC <10000 CMM; BODY FLUID SOURCE PLEURAL
[2017-01-25 16:09] LABS: PROTEIN, BODY FLUID 5.9 gm/dL
[2017-01-26 05:46] LABS: BASOPHIL# 0.1 X10e3 (0-0.3); BASOPHIL% 0.8 % (0-2.5); EOSINOPHIL# 0.1 X10e3 (0-0.7); EOSINOPHIL% 0.7 % (0.0-7.0); HEMATOCRIT 31.5 % (35.0-45.0); HEMOGLOBIN 10.3 gm/dL (12.0-16.0); LYMPHOCYTE# 3.3 X10e3 (1.0-3.5); LYMPHOCYTE% 18.8 % (17.0-45.0); MEAN CORPUSCULAR HEMOGLOBIN 27.7 PG (28-34); MEAN CORPUSCULAR HGB CONC 32.6 g/dL (30-36); MEAN PLATELET VOLUME 6.4 FL (6.5-11.5); MONOCYTE# 0.7 X10e3 (0-1.0); NEUTROPHIL# 13.3 X10e3 (1.5-7.1); NEUTROPHIL% 75.7 % (40-75); PLATELET COUNT 644 X10e3 (140-420); RED CELL DISTRIBUTION WIDTH 13.6 % (11.0-15.5); WHITE BLOOD COUNT 17.6 X10e3 (4.0-10.5)
[2017-01-26 05:47] LABS: DIFF IND NO
[2017-01-26 06:26] LABS: CALCIUM SERUM 7.6 mg/dL (8.4-10.2); CARBON DIOXIDE 30 mmol/L (22-31); CHLORIDE 98 mmol/L (100-111); CREATININE SERUM 0.7 mg/dL (0.6-1.4); GLOM FILT RATE Estimated 117.9 mL/min (>60); GLUCOSE FASTING 111 mg/dL (70-110); SODIUM 136 mmol/L (135-145)
[2017-01-26 06:27] LABS: BLOOD UREA NITROGEN <5 mg/dL (9-23); BUN/CREATININE RATIO 7.14
[2017-01-26 06:29] LABS: POTASSIUM 2.8 mmol/L (3.5-5.1)
[2017-01-27 05:51] LABS: HEMATOCRIT 32.1 % (35.0-45.0); HEMOGLOBIN 10.3 gm/dL (12.0-16.0); MEAN CELL VOLUME 86.2 FL (83-96); MEAN CORPUSCULAR HEMOGLOBIN 27.6 PG (28-34); MEAN PLATELET VOLUME 6.4 FL (6.5-11.5); RED BLOOD COUNT 3.73 X10e (3.90-5.30); RED CELL DISTRIBUTION WIDTH 13.7 % (11.0-15.5); WHITE BLOOD COUNT 14.9 X10e3 (4.0-10.5)
[2017-01-27 06:19] LABS: BUN/CREATININE RATIO 7.5; CALCIUM SERUM 7.9 mg/dL (8.4-10.2); CREATININE SERUM 0.8 mg/dL (0.6-1.4); GLOM FILT RATE Estimated 100.4 mL/min (>60); POTASSIUM 3.3 mmol/L (3.5-5.1)
[2017-01-28 05:37] LABS: HEMATOCRIT 31.6 % (35.0-45.0); HEMOGLOBIN 10.3 gm/dL (12.0-16.0); MEAN CELL VOLUME 85.5 FL (83-96); MEAN CORPUSCULAR HEMOGLOBIN 27.9 PG (28-34); MEAN CORPUSCULAR HGB CONC 32.7 g/dL (30-36); MEAN PLATELET VOLUME 6.2 FL (6.5-11.5); RED BLOOD COUNT 3.69 X10e (3.90-5.30); RED CELL DISTRIBUTION WIDTH 13.6 % (11.0-15.5); WHITE BLOOD COUNT 16.1 X10e3 (4.0-10.5)
[2017-01-28 07:27] LABS: CALCIUM SERUM 8.5 mg/dL (8.4-10.2); CARBON DIOXIDE 29 mmol/L (22-31); CHLORIDE 102 mmol/L (100-111); CREATININE SERUM 0.4 mg/dL (0.6-1.4); GLOM FILT RATE Estimated 141.8 mL/min (>60); GLUCOSE FASTING 101 mg/dL (70-110); POTASSIUM 4.3 mmol/L (3.5-5.1); SODIUM 138 mmol/L (135-145)
[2017-01-28 07:28] LABS: BLOOD UREA NITROGEN <5 mg/dL (9-23)
[2017-01-29 05:29] LABS: HEMATOCRIT 30.8 % (35.0-45.0); MEAN CORPUSCULAR HGB CONC 32.6 g/dL (30-36); MEAN PLATELET VOLUME 6.3 FL (6.5-11.5); RED BLOOD COUNT 3.58 X10e (3.90-5.30); RED CELL DISTRIBUTION WIDTH 13.4 % (11.0-15.5); WHITE BLOOD COUNT 13.8 X10e3 (4.0-10.5)
[2017-01-29 05:35] LABS: INR 0.9; PARTIAL THROMBOPLASTIN TIME 28.7 SECONDS (23.5-31.3)
[2017-01-29 06:57] LABS: CALCIUM SERUM 8.3 mg/dL (8.4-10.2); CREATININE SERUM 0.4 mg/dL (0.6-1.4); GLOM FILT RATE Estimated 140.8 mL/min (>60); POTASSIUM 4.3 mmol/L (3.5-5.1)
[2017-01-29 07:04] LABS: AMPHETAMINE NEG (NEG); BARBITURATES NEG (NEG); BENZODIAZEPINES POS (NEG); COCAINE NEG (NEG); MARIJUANA NEG (NEG); OPIATES POS (NEG); TRICYCLIC ANTIDEPRESSANTS NEG (NEG); U METHADONE NEG (NEG)
[2017-01-29 12:05] LABS: HEMATOCRIT 30.2 % (35.0-45.0); HEMOGLOBIN 9.6 gm/dL (12.0-16.0)
[2017-01-29 12:20] LABS: ARTERIAL BLD GAS O2 SATURATION 87.4 % (90.0-100.0); ARTERIAL BLOOD GAS ALLEN TEST NORMAL; ARTERIAL BLOOD GAS ART SITE RIGHT RADIAL; ARTERIAL BLOOD GAS CARBOXY HB 2.1 %sat (0.0-9.0); ARTERIAL BLOOD GAS HCO3 28.1 mmol/L; ARTERIAL BLOOD GAS LITER FLOW 3.5; ARTERIAL BLOOD GAS MET HB 1.2 %sat (0.0-2.0); ARTERIAL BLOOD GAS PCO2 46.5 mmHg (35.0-45.0); ARTERIAL BLOOD GAS PO2 60.9 mmHg (80.0-100); ARTERIAL BLOOD GAS pH 7.389 (7.350-7.450); ARTERIAL DRAW? YES
[2017-01-29 12:21] LABS: ARTERIAL BLOOD GAS DELIVERY NASAL CANNULA
[2017-01-30 04:18] LABS: ARTERIAL BLD GAS O2 SATURATION 92.7 % (90.0-100.0); ARTERIAL BLOOD GAS CARBOXY HB 0.9 %sat (0.0-9.0); ARTERIAL BLOOD GAS HCO3 30.4 mmol/L; ARTERIAL BLOOD GAS MET HB 0.8 %sat (0.0-2.0); ARTERIAL BLOOD GAS PCO2 43.2 mmHg (35.0-45.0); ARTERIAL BLOOD GAS pH 7.456 (7.350-7.450)
[2017-01-30 04:43] LABS: ARTERIAL BLOOD GAS ALLEN TEST NORMAL; ARTERIAL BLOOD GAS ART SITE RIGHT RADIAL; ARTERIAL BLOOD GAS PO2 66.5 mmHg (80.0-100); ARTERIAL DRAW? YES
[2017-01-30 05:52] LABS: BASOPHIL# 0.1 X10e3 (0-0.3); BASOPHIL% 0.4 % (0-2.5); EOSINOPHIL# 0.1 X10e3 (0-0.7); EOSINOPHIL% 0.7 % (0.0-7.0); HEMATOCRIT 29.7 % (35.0-45.0); HEMOGLOBIN 9.7 gm/dL (12.0-16.0); LYMPHOCYTE% 8.9 % (17.0-45.0); MEAN CELL VOLUME 85.7 FL (83-96); MEAN CORPUSCULAR HEMOGLOBIN 27.9 PG (28-34); MEAN CORPUSCULAR HGB CONC 32.5 g/dL (30-36); MEAN PLATELET VOLUME 6.5 FL (6.5-11.5); MONOCYTE# 1.5 X10e3 (0-1.0); MONOCYTE% 6.7 % (3.0-12.0); NEUTROPHIL# 18.5 X10e3 (1.5-7.1); NEUTROPHIL% 83.3 % (40-75); PLATELET COUNT 615 X10e3 (140-420); RED BLOOD COUNT 3.47 X10e (3.90-5.30); RED CELL DISTRIBUTION WIDTH 13.9 % (11.0-15.5)
[2017-01-30 05:58] LABS: DIFF IND YES; WHITE BLOOD COUNT 22.2 X10e3 (4.0-10.5)
[2017-01-30 06:33] LABS: CALCIUM SERUM 8.3 mg/dL (8.4-10.2); CARBON DIOXIDE 28 mmol/L (22-31); CHLORIDE 98 mmol/L (100-111); CREATININE SERUM 0.4 mg/dL (0.6-1.4); GLOM FILT RATE Estimated 140.8 mL/min (>60); GLUCOSE FASTING 106 mg/dL (70-110); POTASSIUM 4.9 mmol/L (3.5-5.1); SODIUM 134 mmol/L (135-145)
[2017-01-30 06:34] LABS: BLOOD UREA NITROGEN <5 mg/dL (9-23)
[2017-01-30 07:17] LABS: PLATELET ESTIMATE INCREASED (NORMAL)
[2017-01-31 06:16] LABS: BASOPHIL# 0.1 X10e3 (0-0.3); BASOPHIL% 0.7 % (0-2.5); EOSINOPHIL# 0.1 X10e3 (0-0.7); EOSINOPHIL% 0.7 % (0.0-7.0); HEMATOCRIT 27.7 % (35.0-45.0); HEMOGLOBIN 9.2 gm/dL (12.0-16.0); LYMPHOCYTE# 3.3 X10e3 (1.0-3.5); LYMPHOCYTE% 17.6 % (17.0-45.0); MEAN CELL VOLUME 85.1 FL (83-96); MEAN CORPUSCULAR HEMOGLOBIN 28.2 PG (28-34); MEAN CORPUSCULAR HGB CONC 33.1 g/dL (30-36); MEAN PLATELET VOLUME 6.1 FL (6.5-11.5); MONOCYTE# 1.3 X10e3 (0-1.0); PLATELET COUNT 534 X10e3 (140-420); RED BLOOD COUNT 3.26 X10e (3.90-5.30); RED CELL DISTRIBUTION WIDTH 13.8 % (11.0-15.5); WHITE BLOOD COUNT 18.9 X10e3 (4.0-10.5)
[2017-01-31 06:17] LABS: DIFF IND NO
[2017-01-31 06:53] LABS: CALCIUM SERUM 8.3 mg/dL (8.4-10.2); CREATININE SERUM 0.5 mg/dL (0.6-1.4); GLOM FILT RATE Estimated 130.8 mL/min (>60); MAGNESIUM 1.8 mg/dL (1.6-3.0); POTASSIUM 3.6 mmol/L (3.5-5.1)
[2017-02-01 05:21] LABS: HEMATOCRIT 27.8 % (35.0-45.0); HEMOGLOBIN 9.1 gm/dL (12.0-16.0); MEAN CELL VOLUME 85.8 FL (83-96); MEAN CORPUSCULAR HGB CONC 32.6 g/dL (30-36); MEAN PLATELET VOLUME 6.2 FL (6.5-11.5); RED BLOOD COUNT 3.24 X10e (3.90-5.30); WHITE BLOOD COUNT 16.7 X10e3 (4.0-10.5)
[2017-02-01 05:47] LABS: BUN/CREATININE RATIO 12.85; CALCIUM SERUM 8.4 mg/dL (8.4-10.2); CREATININE SERUM 0.7 mg/dL (0.6-1.4); GLOM FILT RATE Estimated 117.1 mL/min (>60); MAGNESIUM 1.8 mg/dL (1.6-3.0); POTASSIUM 3.8 mmol/L (3.5-5.1)
== END 2017-02-01 20:49 | disposition left against medical advice (07) | DRG 853 ==
LOC: CED 00:41 → CFTX 00:41 → CED 01:55 → C5C 05:26 → CEDOF 05:26 → CED 05:42 → CEDOF 06:22 → C5C 15:40 → CEDOF 15:40 → CICCU2 01-29 19:25 → C5B 01-30 19:59
PROVIDERS: Family Medicine; Nurse Practitioner; Surgery
PROC: B246YZZ Ultrasonography of Right and Left Heart using Other Contrast (ICD-10-PCS; principal; 2017-01-25)
PROC: 0W9B30Z Drainage of Left Pleural Cavity with Drainage Device, Percutaneous Approach (ICD-10-PCS; 2017-01-25)
PROC: 05HM33Z Insertion of Infusion Device into Right Internal Jugular Vein, Percutaneous Approach (ICD-10-PCS; 2017-01-25)
PROC: 0BDP4ZZ Extraction of Left Pleura, Percutaneous Endoscopic Approach (ICD-10-PCS; 2017-01-29)
DX: A41.9 Sepsis, unspecified organism (principal); J86.9 Pyothorax without fistula; J15.211 Pneumonia due to Methicillin susceptible Staphylococcus aureus; N39.0 Urinary tract infection, site not specified; B95.61 Methicillin susceptible Staphylococcus aureus infection as the cause of diseases classified elsewhere; F17.210 Nicotine dependence, cigarettes, uncomplicated; M54.9 Dorsalgia, unspecified; R07.81 Pleurodynia; D64.9 Anemia, unspecified; F19.10 Other psychoactive substance abuse, uncomplicated
CPT/HCPCS: 36600; 71010; 71275; 80048; 80053; 80200; 80202; 80307; 81003; 82553; 82803; 82947; 83605; 83615; 83735; 83986; 84132; 84157; 84484; 84703; 85014; 85018; 85025; 85027; 85379; 85610; 85730; 86850; 86900; 86901; 86923; 87040; 87070; 87075; 87077; 87086; 87088; 87102; 87116; 87186; 87205; 87206; 87806; 88108; 88305; 89051; 93005; 93306; 93312; 94640; 94760; 96361; 96374; 99291; J0330; J0690; J1170; J1200; J1644; J1885; J2060; J2250; J2270; J2310; J2370; J2405; J2543; J2710; J3010; J3260; J3370; Q9967

== ENCOUNTER 2017-02-04 22:03 | Emergency (ER) | payer OTHER | END 2017-02-05 00:52 | disposition home or self-care (01) | LOC: CED 22:03 | DX: Z45.2 Encounter for adjustment and management of vascular access device (principal); Z88.8 Allergy status to other drugs, medicaments and biological substances; F17.210 Nicotine dependence, cigarettes, uncomplicated | CPT/HCPCS: 99284 ==